=== PATIENT | male | born 1995 | race Caucasian/White ===

== ENCOUNTER 2020-07-03 13:14 | Emergency (ER) | payer OTHER ==
[2020-07-03] MEDS ORDERED: NAPROSYN500 MG PO (13:38)
[2020-07-03] MEDS ORDERED: AMOXICILLIN500 M1 PO (13:38)
== END 2020-07-03 13:42 | disposition home or self-care (01) ==
LOC: ER1 13:14
DX: K05.00 Acute gingivitis, plaque induced (principal); K02.9 Dental caries, unspecified; Z87.442 Personal history of urinary calculi; J45.909 Unspecified asthma, uncomplicated
CPT/HCPCS: 99282

== ENCOUNTER 2021-03-16 19:12 | Emergency (ER) | payer OTHER ==
[~2021-03-16 19:12] MED LIST: AMOXICILLIN500 M1 PO; NAPROSYN500 MG PO
[2021-03-16 19:49] LABS: HEMOGLOBIN 15.8 gm/dl (14.0-17.5); RED BLOOD COUNT 5.76 M/UL (4.20-5.50); WHITE BLOOD COUNT 7.2 K/UL (4.5-11.0)
[2021-03-16 20:12] LABS: BUN/CREATININE RATIO 14 (0-10)
[2021-03-16] MEDS ORDERED: ZOFRAN4 MG PO (21:47)
== END 2021-03-16 22:00 | disposition home or self-care (01) ==
LOC: ER1 19:12
PROVIDERS: Physician Assistant
DX: A08.4 Viral intestinal infection, unspecified (principal); Z87.442 Personal history of urinary calculi; Z20.822 Contact with and (suspected) exposure to COVID-19
CPT/HCPCS: 80053; 81001; 82150; 83690; 85025; 87086; 99284; U0002